=== PATIENT | male | born 1965 | race Caucasian/White ===

== ENCOUNTER 2020-03-21 16:52 | Emergency (ER) | payer MEDICAID ==
[~2020-03-21] VITALS: Ht 177.8 cm; Wt 77.3 kg
[2020-03-21 17:17] VITALS: BP 112/76
[2020-03-21] MEDS ORDERED: PERM60CR19 TOP (17:52)
[2020-03-21] MEDS ORDERED: IVER3TAB2 PO (17:52)
== END 2020-03-21 18:57 | disposition home or self-care (01) ==
LOC: ER 16:52
DX: B88.8 Other specified infestations (principal); G89.29 Other chronic pain; Z56.0 Unemployment, unspecified; Z79.899 Other long term (current) drug therapy
CPT/HCPCS: 99283

== ENCOUNTER 2022-01-30 18:37 | Emergency (ER) | payer MEDICAID ==
[~2022-01-30] VITALS: Ht 180.3 cm; Wt 76.2 kg
[~2022-01-30 18:37] MED LIST: IVER3TAB2 PO
[2022-01-30 18:56] VITALS: BP 149/98
[2022-01-30] MEDS ORDERED: CLIN300C71 PO (21:59)
[2022-01-30] MEDS ORDERED: amox tr/potassium clavulanate 875/125mg TAB PO ONE (22:00)
[2022-01-30] MEDS ORDERED: clindamycin 150mg capsule PO ONE (22:00)
[2022-01-30] MEDS ORDERED: AMOX-117 PO (22:04)
== END 2022-01-30 22:12 | disposition home or self-care (01) ==
LOC: ER 18:38
DX: L03.213 Periorbital cellulitis (principal); G89.29 Other chronic pain; M54.50 Low back pain, unspecified; Z56.0 Unemployment, unspecified
CPT/HCPCS: 99283